=== PATIENT | male | born 1960 ===

== ENCOUNTER 2023-01-20 20:17 | Emergency (ER) | payer BC ==
[2023-01-21 00:30] VITALS: BP 128/71; PULSE 80
== END 2023-01-20 21:10 | disposition home or self-care (01) ==
LOC: LB.ED 20:17
DX: S21.101A Unspecified open wound of right front wall of thorax without penetration into thoracic cavity, initial encounter (principal)
CPT/HCPCS: 99282

== ENCOUNTER 2023-07-17 10:27 | Day surgery (SDC) | payer BC, OTHER ==
[~2023-07-17 10:27] MED LIST: Metoclopramide 10 MG/2 ML SDV IV PRN; Sodium Chloride 0.9% 1,000 ML IV SCH
[2023-07-17 13:42] VITALS: BP 94/69; PULSE 69
== END 2023-07-17 14:22 | disposition home or self-care (01) ==
LOC: LB.SDS 10:27
PROVIDERS: ATTEND Surgery
DX: Z12.11 Encounter for screening for malignant neoplasm of colon (principal); Z80.0 Family history of malignant neoplasm of digestive organs
CPT/HCPCS: 45378; J7030